=== PATIENT | female | born 1990 | race Caucasian/White ===

== ENCOUNTER 2020-01-16 10:21 | Day surgery (SDC) | payer MEDICAID ==
[~2020-01-16] VITALS: Ht 154.9 cm; Wt 47.2 kg
[2020-01-16 11:12] LABS: BASOPHILS % (AUTO) 0.6 % (0.0-2.0); EOSINOPHILS # (AUTO) 0.2 K/uL (0-0.4); EOSINOPHILS % (AUTO) 3.5 % (0.0-4.0); HEMATOCRIT 39.3 % (36-48); LYMPHOCYTES # (AUTO) 2.1 K/uL (2.5-16.5); LYMPHOCYTES % (AUTO) 35.1 % (20.5-51.1); MEAN CORPUSCULAR HEMOGLOBIN 27 pg (27-31); MEAN CORPUSCULAR HGB CONC 33 g/dL (33-37); MONOCYTES # (AUTO) 0.3 K/uL (0.8-1.0); NEUTROPHILS # (AUTO) 3.4 K/uL (1.8-7.7); NEUTROPHILS % (AUTO) 55.8 % (42.2-75.2); PLATELET COUNT (AUTO) 308 K/uL (140-450); RED BLOOD CELL COUNT(AUTO) 4.73 MIL/uL (4.20-5.40); RED CELL DISTRIBUTION WIDTH 13.5 % (11.6-13.7)
[2020-01-16 11:31] LABS: ANION GAP 12.2 (8-16); CREATININE 0.7 mg/dL (0.6-1.3); POTASSIUM 4.2 mmol/L (3.5-5.1)
[2020-01-16 11:36] LABS: ALBUMIN 4.3 g/dL (3.4-5.0); TOTAL BILIRUBIN 0.8 mg/dL (0.0-1.0)
[2020-01-16] MEDS ORDERED: BUPIVACAINE-MPF 0.25% 30 ML VIAL INJ ONE (11:44)
[2020-01-16] MEDS ORDERED: MIDAZOLAM 2 MG/2 ML VIAL ONE (12:02)
[2020-01-16] MEDS ORDERED: PROPOFOL 200 MG/20 ML VIAL IV ONE (12:02)
[2020-01-16] MEDS ORDERED: ROCURONIUM 50 MG/5 ML VIAL IV ONE (12:02)
[2020-01-16] MEDS ORDERED: fentaNYL 0.05 MG/ML VIAL ONE (12:02)
[2020-01-16] MEDS ORDERED: DESFLURANE 240 ML BTL INH ONE (12:02)
[2020-01-16] MEDS ORDERED: METOPROLOL 5 MG/5 ML VIAL ONE (12:02)
[2020-01-16] MEDS ORDERED: ONDANSETRON 4 MG/2 ML VIAL ONE (12:02)
[2020-01-16] MEDS ORDERED: GLYCOPYRROLATE 0.2 MG/ML VIAL ONE (12:02)
[2020-01-16] MEDS ORDERED: NEOSTIGMINE 1:1000 10 MG/10 ML VIAL ONE (12:02)
[2020-01-16] MEDS ORDERED: LACTATED RINGERS 1,000 ML IV SCH (12:38)
[2020-01-16] MEDS ORDERED: ONDANSETRON 4 MG/2 ML VIAL IVP PRN (12:40)
[2020-01-16] MEDS: HYDROmorphone 1 MG/ML AMP IVP PRN ×4 (13:35→14:05)
[2020-01-16] MEDS ORDERED: HYDROmorphone PFS 2 MG/ML SYR ONE (13:39)
[2020-01-16] MEDS: MEPERIDINE 25 MG/ML SYR IVP PRN ×2 (13:50→14:00)
== END 2020-01-16 15:50 | disposition home or self-care (01) ==
LOC: MDS 10:21 → MMU 10:24 → MDS 15:50
PROVIDERS: ATTEND Obstetrics & Gynecology
DX: N83.209 Unspecified ovarian cyst, unspecified side (principal); N73.6 Female pelvic peritoneal adhesions (postinfective)
CPT/HCPCS: 36415; 58660; 80053; 81025; 85025; J1170; J2175; J2250; J2405; J2704; J2710; J3010; J3490; J7120